=== PATIENT | female | born 1990 | race Caucasian/White ===

== ENCOUNTER 2019-03-02 15:12 | Observation (INO) | payer MEDICAID ==
[~2019-03-02] VITALS: Ht 162.6 cm; Wt 62.6 kg
[2019-03-02] MEDS ORDERED: BETAMETH ACET/BETAMETH NA PH 30 MG/5 ML VIAL IM SCH (16:00)
[2019-03-02 16:23] LABS: BASOPHILS # (AUTO) 0.1 K/uL (0.00-0.22); BASOPHILS % (AUTO) 0.4 % (0.0-2.0); EOSINOPHILS # (AUTO) 0.2 K/uL (0-0.4); EOSINOPHILS % (AUTO) 1.1 % (0.0-4.0); HEMATOCRIT 38.7 % (36-48); HEMOGLOBIN 12.9 g/dL (12.0-16.0); LYMPHOCYTES # (AUTO) 2.1 K/uL (2.5-16.5); LYMPHOCYTES % (AUTO) 13.5 % (20.5-51.1); MEAN CORPUSCULAR HEMOGLOBIN 33 pg (27-31); MEAN CORPUSCULAR HGB CONC 33 g/dL (33-37); MEAN CORPUSCULAR VOLUME 97.8 fL (80-94); MONOCYTES # (AUTO) 0.9 K/uL (0.8-1.0); MONOCYTES % (AUTO) 5.5 % (1.7-9.3); NEUTROPHILS # (AUTO) 12.5 K/uL (1.8-7.7); NEUTROPHILS % (AUTO) 79.5 % (42.2-75.2); PLATELET COUNT (AUTO) 273 K/uL (140-450); RED BLOOD CELL COUNT(AUTO) 3.95 MIL/uL (4.20-5.40); RED CELL DISTRIBUTION WIDTH 13.8 % (11.6-13.7); WHITE BLOOD COUNT (AUTO) 15.7 K/uL (4.8-10.8)
[2019-03-02 16:29] LABS: APPEARANCE,URINE SL CLOUDY (CLEAR); BILIRUBIN,URINE NEGATIVE (NEGATIVE); BLOOD, URINE NEGATIVE (NEGATIVE); COLOR,URINE YELLOW (YELLOW); LEUKOCYTE ESTERASE ,URINE NEGATIVE (NEGATIVE); NITRITE, URINE NEGATIVE (NEGATIVE); PH,URINE 6.5 (5.0-9.0); UGLUCOSE NEGATIVE (NEGATIVE)
[2019-03-02 16:36] LABS: RBC,URINE NONE SEEN /HPF (0-5); WBC,URINE NONE SEEN /HPF (0-5)
[2019-03-02] MEDS ORDERED: BETAMETH ACET/BETAMETH NA PH 30 MG/5 ML VIAL IM ONE (16:38)
[2019-03-02 17:03] VITALS: BP 109/65
[2019-03-03] MEDS ORDERED: PREN-380 PO (17:51)
== END 2019-03-02 21:10 | disposition home or self-care (01) ==
LOC: MLD 15:12
PROVIDERS: ADMIT Obstetrics & Gynecology; ATTEND Obstetrics & Gynecology
DX: O60.03 Preterm labor without delivery, third trimester (principal); Z3A.35 35 weeks gestation of pregnancy; Z91.013 Allergy to seafood
CPT/HCPCS: 36415; 76817; 81001; 82731; 85025; 86886; 86900; 86901; 96372; G0378; J0702; Q0092

== ENCOUNTER 2019-03-03 17:12 | Observation (INO) | payer MEDICAID ==
[~2019-03-03] VITALS: Ht 152.4 cm; Wt 106.6 kg
[2019-03-03 17:30] VITALS: BP 107/51
[2019-03-03] MEDS ORDERED: PREN-380 PO (17:51)
[2019-03-03] MEDS ORDERED: BETAMETH ACET/BETAMETH NA PH 30 MG/5 ML VIAL IM ONE ×2 (17:55→17:57)
== END 2019-03-03 18:30 | disposition home or self-care (01) ==
LOC: MLD 17:12
PROVIDERS: ADMIT Obstetrics & Gynecology; ATTEND Obstetrics & Gynecology
DX: O26.893 Other specified pregnancy related conditions, third trimester (principal); Z3A.36 36 weeks gestation of pregnancy
CPT/HCPCS: 59025; 96372; G0378; J0702

== ENCOUNTER 2019-04-05 08:58 | Inpatient (IN) | payer MEDICAID ==
[~2019-04-05] VITALS: Ht 165.1 cm; Wt 107.5 kg
[~2019-04-05 08:58] MED LIST: PREN-380 PO
[2019-04-05] MEDS ORDERED: CARBOPROST 250 MCG/ML AMP IM PRN (10:25)
[2019-04-05] MEDS ORDERED: PROMETHAZINE 25 MG/ML VIAL IVP PRN (10:25)
[2019-04-05] MEDS ORDERED: METHYLERGONOVINE 0.2 MG/ML AMP IM PRN (10:25)
[2019-04-05 11:11] VITALS: BP 120/64
[2019-04-05 12:11] LABS: ALBUMIN 2.5 g/dL (3.4-5.0); ANION GAP 14.3 (8-16); CARBON DIOXIDE 20.8 mmol/L (21-32); CREATININE 0.5 mg/dL (0.6-1.3); POTASSIUM 4.1 mmol/L (3.5-5.1); TOTAL BILIRUBIN 0.3 mg/dL (0.0-1.0)
[2019-04-05] MEDS: LACTATED RINGERS 1,000 ML IV SCH (12:15)
[2019-04-05 12:30] LABS: BASOPHILS % (AUTO) 0.1 % (0.0-2.0); EOSINOPHILS # (AUTO) 0.1 K/uL (0-0.4); EOSINOPHILS % (AUTO) 0.9 % (0.0-4.0); HEMOGLOBIN 13.6 g/dL (12.0-16.0); LYMPHOCYTES # (AUTO) 1.8 K/uL (2.5-16.5); LYMPHOCYTES % (AUTO) 13.2 % (20.5-51.1); MEAN CORPUSCULAR HEMOGLOBIN 33 pg (27-31); MEAN CORPUSCULAR HGB CONC 33 g/dL (33-37); MEAN CORPUSCULAR VOLUME 97.8 fL (80-94); MONOCYTES # (AUTO) 0.8 K/uL (0.8-1.0); MONOCYTES % (AUTO) 6.2 % (1.7-9.3); NEUTROPHILS # (AUTO) 10.7 K/uL (1.8-7.7); NEUTROPHILS % (AUTO) 79.6 % (42.2-75.2); PLATELET COUNT (AUTO) 276 K/uL (140-450); RED BLOOD CELL COUNT(AUTO) 4.19 MIL/uL (4.20-5.40); WHITE BLOOD COUNT (AUTO) 13.5 K/uL (4.8-10.8)
[2019-04-05] MEDS ORDERED: OXYTOCIN 20 UNITS in LACTATED RINGERS 1,000 ML IV SCH (13:25)
[2019-04-05] MEDS ORDERED: OXYTOCIN 20 UNITS/LR PREMIX 1,000 ML IV ONE (13:34)
[2019-04-06] MEDS ORDERED: OXYTOCIN 10 UNITS/ML VIAL ONE (01:33)
--- NOTE | 2019-04-06 08:56 | NUR ---
PATIENT HAS BEEN SCREENED AND CATEGORIZED LOW NUTRITION RISK. PATIENT WILL BE SEEN WITHIN 7 DAYS OF ADMISSION. 04/11/[address]
[2019-04-06] MEDS: LACTATED RINGERS 1,000 ML IV SCH (11:41)
[2019-04-06] MEDS ORDERED: BENZOCAINE/MENTHOL 20%-0.5% 60 GM CAN TP PRN (14:50)
[2019-04-06] MEDS ORDERED: TEMAZEPAM 15 MG CAP PO PRN (14:50)
[2019-04-06] MEDS: IBUPROFEN 800 MG TAB PO PRN (20:14)
[2019-04-06] MEDS ORDERED: INFLUENZA VACCINE QUAD 0.5 ML SYR IMVAC PRN (21:30)
[2019-04-06] MEDS: BISACODYL 5 MG TABEC PO SCH (21:54)
[2019-04-07 08:04] LABS: HEMOGLOBIN 11.7 g/dL (12.0-16.0)
[2019-04-07] MEDS: BISACODYL 5 MG TABEC PO SCH (20:56)
[2019-04-07] MEDS ORDERED: DOCUSATE SOD/SENNA 50/8.6 MG 1 TAB PO SCH (21:00)
[2019-04-08] MEDS: IBUPROFEN 800 MG TAB PO PRN (00:51)
== END 2019-04-08 22:46 | disposition home or self-care (01) | DRG 560 ==
LOC: MFCC 08:58
PROVIDERS: ADMIT Obstetrics & Gynecology; ATTEND Obstetrics & Gynecology
PROC: 3E033VJ Introduction of Other Hormone into Peripheral Vein, Percutaneous Approach (ICD-10-PCS; 2019-04-05)
PROC: 10E0XZZ Delivery of Products of Conception, External Approach (ICD-10-PCS; principal; 2019-04-06)
PROC: 10907ZC Drainage of Amniotic Fluid, Therapeutic from Products of Conception, Via Natural or Artificial Opening (ICD-10-PCS; 2019-04-06)
PROC: 3E0234Z Introduction of Serum, Toxoid and Vaccine into Muscle, Percutaneous Approach (ICD-10-PCS; 2019-04-07)
DX: O48.0 Post-term pregnancy (principal); O70.0 First degree perineal laceration during delivery; Z37.0 Single live birth; Z3A.40 40 weeks gestation of pregnancy; Z23 Encounter for immunization; Z91.013 Allergy to seafood
CPT/HCPCS: 36415; 59409; 76805; 80053; 85018; 85025; 86592; 86886; 86900; 86901; 90715; J2590; J7120; Q0092